=== PATIENT | female | born 1990 | race African-American/Black ===

== ENCOUNTER 2023-08-28 15:08 | Emergency (ER) | payer SELFPAY ==
[2023-08-28 15:15] VITALS: BMI 27.4
[2023-08-28] MEDS ORDERED: morphine CARPU-JECT 4 MG/1 ML DISP.SYRIN IVPUSH ONE ×2 (16:12→19:19)
[2023-08-28] MEDS ORDERED: ONDANSETRON 4 MG/2 ML VIAL IVPUSH ONE (16:13)
[2023-08-28 16:34] LABS: BASO % 0.5 % (0-2.0); EOS % 0.6 % (0-4.5); HEMATOCRIT 33.4 % (32.4-45.2); HEMOGLOBIN 11.6 GM/dL (10.7-15.3); MCH 29.3 pg (25.7-33.7); MCHC 34.7 g/dl (32.0-36.0); MEAN CELL VOLUME 84.5 fl (80-96); MEAN PLT VOLUME 8.3 fl (7.5-11.1); MONO % 6.3 % (3.8-10.2); NEUT % 67.6 % (42.8-82.8); PLATELET COUNT 232 10^3/uL (134-434); RBC 3.95 M/mm3 (3.60-5.2); RDW 13.6 % (11.6-15.6); WHITE BLOOD COUNT 7.9 K/mm3 (4.0-10.0)
[2023-08-28] MEDS ORDERED: morphine SULFATE 4 MG/ML VIAL ONE ×2 (16:36→19:28)
[2023-08-28] MEDS ORDERED: ONDANSETRON 4 MG/2 ML VIAL ONE (16:36)
[2023-08-28 16:39] LABS: INR 1.16 (0.83-1.09); PROTHROMBIN TIME (PATIENT) 13.4 SEC (9.7-13.0)
[2023-08-28 16:54] LABS: POTASSIUM 4.1 mmol/L (3.5-5.1)
[2023-08-28 16:58] LABS: CALCIUM 9.3 mg/dL (8.5-10.1)
[2023-08-28 16:59] LABS: ALBUMIN 3.8 g/dl (3.4-5.0); BLOOD UREA NITROGEN 5.2 mg/dL (7-18)
[2023-08-28 17:02] LABS: CREATININE 0.4 mg/dL (0.55-1.3)
[2023-08-28 17:03] LABS: TOT PROT 7.3 g/dl (6.4-8.2)
[2023-08-28 17:04] LABS: BILIRUBIN,TOTAL 0.5 mg/dL (0.2-1)
[2023-08-28 17:31] LABS: HCG,QUALITATIVE URINE Positive
[2023-08-28 17:33] LABS: EPI CELLS >36 /uL (0-25.1); HYALINE CASTS 0 /uL (0-3.1); URINE APPEARANCE CLOUDY; URINE BACTERIA 188 /uL (0-1359); URINE BILIRUBIN NEGATIVE (NEGATIVE); URINE COLOR YELLOW; URINE GLUCOSE (UA) NEGATIVE (NEGATIVE); URINE KETONE 4+ (NEGATIVE); URINE LEUK ESTERASE NEGATIVE (NEGATIVE); URINE NITRITE NEGATIVE (NEGATIVE); URINE PROTEIN TRACE (NEGATIVE); URINE RBC 17 /uL (0-23.9); URINE WBC 17 /uL (0-25.8)
[2023-08-28 19:54] VITALS: BP 105/55; PULSE 84; RESP 16; TEMP 98.5
[2023-08-28 20:30] LABS: BASO % 0.3 % (0-2.0); EOS % 0.6 % (0-4.5); HEMATOCRIT 30.9 % (32.4-45.2); HEMOGLOBIN 10.8 GM/dL (10.7-15.3); LYMPH % 30.7 % (8-40); MCH 29.5 pg (25.7-33.7); MCHC 34.8 g/dl (32.0-36.0); MEAN CELL VOLUME 84.6 fl (80-96); MEAN PLT VOLUME 8.5 fl (7.5-11.1); MONO % 7.2 % (3.8-10.2); NEUT % 61.2 % (42.8-82.8); PLATELET COUNT 205 10^3/uL (134-434); RBC 3.65 M/mm3 (3.60-5.2); RDW 13.2 % (11.6-15.6); WHITE BLOOD COUNT 7.8 K/mm3 (4.0-10.0)
== END 2023-08-28 21:25 | disposition short-term general hospital (02) ==
LOC: JER 15:08
PROC: 3E033GC Introduction of Other Therapeutic Substance into Peripheral Vein, Percutaneous Approach (ICD-10-PCS; principal; 2023-08-28)
PROC: 3E033GC Introduction of Other Therapeutic Substance into Peripheral Vein, Percutaneous Approach (ICD-10-PCS; 2023-08-28)
PROC: 3E033GC Introduction of Other Therapeutic Substance into Peripheral Vein, Percutaneous Approach (ICD-10-PCS; 2023-08-28)
DX: O26.899 Other specified pregnancy related conditions, unspecified trimester (principal); R10.84 Generalized abdominal pain; R10.30 Lower abdominal pain, unspecified; R11.0 Nausea; Z3A.00 Weeks of gestation of pregnancy not specified
CPT/HCPCS: 36415; 76801-TC; 80053; 81003; 83690; 84702; 84703; 85025; 85610; 86850; 86900; 86901; 87086; 99285-25

== ENCOUNTER 2024-03-21 00:05 | Inpatient (IN) | payer OTHER ==
[2024-03-21] MEDS ORDERED: ACETAMINOPHEN INJECTION 100 ML IVPB ONE (00:29)
[2024-03-21 01:09] LABS: BASO % 0.2 % (0-2.0); EOS % 0.6 % (0-4.5); MCH 28.4 pg (25.7-33.7); MCHC 35.2 g/dl (32.0-36.0); MEAN CELL VOLUME 80.8 fl (80-96); MEAN PLT VOLUME 9.5 fl (7.5-11.1); MONO % 6.1 % (3.8-10.2); NEUT % 71.1 % (42.8-82.8); PLATELET COUNT 198 10^3/uL (134-434); RBC 4.57 M/mm3 (3.60-5.2); WHITE BLOOD COUNT 10.4 K/mm3 (4.0-10.0)
[2024-03-21 01:20] LABS: POTASSIUM 3.8 mmol/L (3.5-5.1)
[2024-03-21 01:22] LABS: ALBUMIN 3.9 g/dl (3.4-5.0); BLOOD UREA NITROGEN 6.9 mg/dL (7-18)
[2024-03-21 01:27] LABS: BILIRUBIN,TOTAL 0.6 mg/dL (0.2-1); CREATININE 0.6 mg/dL (0.55-1.3); TOT PROT 7.4 g/dl (6.4-8.2)
[2024-03-21] MEDS: ACETAMINOPHEN 1000 MG/100 ML BAG IVPB ONE (02:48)
[2024-03-21] MEDS ORDERED: CEFTRIAXONE 1 GM/50 ML BAG ONE (05:00)
[2024-03-21] MEDS: CEFTRIAXONE 1,000 MG in DEXTROSE 5%-WATER - 50 ML IVPB ONE (05:14)
[2024-03-21] MEDS ORDERED: morphine SULFATE 4 MG/ML VIAL ONE (08:09)
[2024-03-21] MEDS: morphine CARPU-JECT 4 MG/1 ML DISP.SYRIN IVPUSH ONE (08:16)
[2024-03-21 08:24] LABS: INR 1.04 (0.83-1.09); PROTHROMBIN TIME (PATIENT) 11.9 SEC (9.7-13.0)
[2024-03-21] MEDS ORDERED: ACETAMINOPHEN 1000 MG/100 ML BAG IVPB PRN (08:48)
[2024-03-21] MEDS ORDERED: PIPERACILLIN/TAZOB 4.5 GM 4.5 GM in DEXTROSE 5%-WATER 100 ML IVPB SCH (10:00)
[2024-03-21] MEDS: PIPERACILLIN/TAZOB 4.5 GM 4.5 GM in DEXTROSE 5%-WATER 100 ML IVPB SCH ×2 (10:32→15:34)
[2024-03-21] MEDS ORDERED: BUPIVACAINE HCL/PF 0.25% (2.5MG/ML) 10 ML VIAL ONE (10:42)
[2024-03-21 11:57] VITALS: BMI 23.6
[2024-03-21] MEDS ORDERED: ONDANSETRON 4 MG/2 ML VIAL IVPUSH PRN ×3 (12:12→17:37)
[2024-03-21] MEDS ORDERED: PROMETHAZINE HCL 25 MG/1 ML VIAL IVPB PRN ×2 (12:12→13:39)
[2024-03-21] MEDS ORDERED: ROCURONIUM BROMIDE 50 MG/5 ML SYRINGE ONE (12:14)
[2024-03-21] MEDS ORDERED: MIDAZOLAM HCL 2 MG/2 ML SINGLE DOSE VIAL ONE (12:14)
[2024-03-21] MEDS ORDERED: PROPOFOL 20 ML ONE (12:14)
[2024-03-21] MEDS ORDERED: LIDOCAINE HCL/PF 2% SDV 5ML VIAL ONE (12:15)
[2024-03-21] MEDS: BUPIVACAINE HCL/PF 0.25% (2.5MG/ML) 10 ML VIAL IJ ONE ×2 (12:54)
[2024-03-21] MEDS ORDERED: SUGAMMADEX SODIUM 200 MG/2 ML VIAL ONE (13:07)
[2024-03-21] MEDS ORDERED: oxyCODONE HCL 5 MG TABLET PO PRN ×2 (13:39)
[2024-03-21] MEDS ORDERED: LACTATED RINGERS SOLUTION 1,000 ML IV SCH (13:39)
[2024-03-21] MEDS: DOCUSATE SODIUM 100 MG CAPSULE (FP) PO SCH (15:57)
[2024-03-21] MEDS ORDERED: POLYETHYLENE GLYCOL (HEALTHYLAX) 3350 17 GM PACKET PO PRN (17:37)
[2024-03-21] MEDS: ACETAMINOPHEN 1000 MG/100 ML BAG IVPB SCH (18:27)
[2024-03-21] MEDS: LACTATED RINGERS SOLUTION 1,000 ML IV SCH (18:29)
[2024-03-22 09:16] LABS: HEMATOCRIT 34.1 % (32.4-45.2); HEMOGLOBIN 11.9 GM/dL (10.7-15.3); MCH 28.5 pg (25.7-33.7); MEAN CELL VOLUME 81.3 fl (80-96); MEAN PLT VOLUME 9.8 fl (7.5-11.1); PLATELET COUNT 195 10^3/uL (134-434); RBC 4.19 M/mm3 (3.60-5.2); RDW 14.4 % (11.6-15.6); WHITE BLOOD COUNT 13.6 K/mm3 (4.0-10.0)
[2024-03-22 09:29] LABS: POTASSIUM 3.9 mmol/L (3.5-5.1)
[2024-03-22 09:40] LABS: BLOOD UREA NITROGEN 3.9 mg/dL (7-18); CALCIUM 8.3 mg/dL (8.5-10.1)
[2024-03-22 09:42] LABS: CREATININE 0.6 mg/dL (0.55-1.3)
[2024-03-22] MEDS: KETOROLAC TROMETHAMINE 30 MG/1 ML VIAL IVPUSH PRN (11:37)
[2024-03-22] MEDS ORDERED: ACETAMINOPHEN 500 MG TABLET (FP) PO PRN (13:00)
[2024-03-22 16:27] VITALS: BP 112/65; PULSE 91; RESP 20; TEMP 98.4
== END 2024-03-22 17:35 | disposition home or self-care (01) | DRG 225 ==
LOC: JER 00:05 → JERBED 05:12 → J8W 08:36
PROVIDERS: ADMIT Internal Medicine; ATTEND Internal Medicine
PROC: 0DTJ4ZZ Resection of Appendix, Percutaneous Endoscopic Approach (ICD-10-PCS; principal; 2024-03-21 10:30)
DX: K35.80 Unspecified acute appendicitis (principal)
CPT/HCPCS: 36415; 74177-TC; 80048; 80053; 84703; 85025; 85027; 85610; 86850; 86900; 86901; 88304-TC; 93005; 93010; 94760; 99285-25; J0131